=== PATIENT | female | born 1995 | race Caucasian/White ===

== ENCOUNTER 2021-03-10 15:02 | Emergency (ER) | payer OTHER, SELFPAY ==
--- NOTE | ~2021-03-10 | US_ITS ---
EXAMINATION: ULTRASOUND APPENDIX CLINICAL INFORMATION: Right lower quadrant pain COMPARISON: None TECHNIQUE: Sonographic evaluation of the right lower quadrant with graded compression. FINDINGS: The appendix is not visualized. No free fluid. No lymphadenopathy. US/US appendix IMPRESSION: Nonvisualization of the appendix. This does not exclude acute appendicitis.
--- NOTE | ~2021-03-10 | CT_ITS ---
EXAMINATION: CT ABDOMEN AND PELVIS WITH CONTRAST CLINICAL INFORMATION: Right lower quadrant abdominal pain. Evaluate for appendicitis. COMPARISON: None TECHNIQUE: Multidetector volumetric images were obtained from the superior aspect of the liver through the pubic symphysis following administration 85 mL of Omnipaque 350 intravenous contrast. Sagittal and coronal reformatted images were obtained on the technologist's workstation. Oral contrast: No This CT examination was performed using dose optimization techniques as appropriate, variously including the following: *Automated exposure control *Adjustment of mA and/or kV according to patient size (this includes techniques or standardized protocols for targeted exams where dose is matched to indication/reason for exam; i.e. extremities or head) *Use of iterative reconstruction technique DLP: 403 mGy-cm FINDINGS: LUNG BASES: The visualized lung bases are unremarkable. LIVER, GALLBLADDER, AND BILIARY TREE: The liver is normal in size, shape, and attenuation. No focal hepatic lesion or biliary ductal dilatation is present. The gallbladder is unremarkable with no evidence of radiopaque gallstones, gallbladder wall thickening, or obvious pericholecystic inflammatory changes. PANCREAS: Unremarkable. SPLEEN: Unremarkable. ADRENAL GLANDS: Unremarkable. KIDNEYS AND URETERS: The kidneys are normal in size, shape, and attenuation. There is a 1.5 cm simple cyst in the upper pole of the left kidney. No hydronephrosis, hydroureter, or calculi seen. No perinephric stranding. BLADDER: Underdistended. No focal abnormalities. No perivesical fat stranding. GASTROINTESTINAL TRACT: The stomach and the small bowel are nondilated. The appendix is unremarkable. No pericolic inflammatory changes or bowel obstruction. ABDOMINAL WALL: No significant hernia is appreciated. LYMPH NODES: There are a few enlarged mesenteric or retroperitoneal lymph nodes in the right lower quadrant, for example measuring up to 1 cm in maximum short axis on image 38 of series 3 of uncertain etiology. VASCULAR: Unremarkable. PELVIC VISCERA: The ovarian veins are dilated and there are engorged periuterine varicosities, which could be seen in the setting of pelvic congestion syndrome. No adnexal lesions. OSSEOUS STRUCTURES: No acute or aggressive osseous abnormalities. CT/CT abdomen pelvis w con IMPRESSION: Normal appendix. Engorged ovarian veins and periuterine vessels that could be related with pelvic congestion syndrome in the appropriate clinical setting. Prominent right lower quadrant mesenteric and retroperitoneal lymph nodes of uncertain etiology. This could be seen in the setting of mesenteric adenitis.
--- NOTE | ~2021-03-10 | US_ITS ---
EXAMINATION: ULTRASOUND PELVIC OVARIAN DOPPLER CLINICAL INFORMATION: Right lower quadrant pain. Last menstrual period today (03/10/2021). COMPARISON: None TECHNIQUE: Transabdominal and transvaginal images were obtained with grayscale, color Doppler and spectral Doppler analysis. FINDINGS: The uterus is anteverted and measures 7.4 x 3.9 x 4.2 cm. There are no focal uterine abnormalities. The endometrium measures 0.4 cm in thickness and appears within normal limits. The ovaries are normal in morphology with preserved flow on color Doppler and spectral Doppler. The right ovary measures 2.5 x 1.4 x 1.7 cm for a volume of 3 mL and the left ovary measures 2.4 x 1.3 x 1.4 cm for a volume of 20 mL. No evidence of free fluid. US/US pelvic ovarian doppler IMPRESSION: No acute sonographic abnormalities to explain the patient's symptoms. No evidence of ovarian torsion at the moment of this examination.
[2021-03-10 15:05] VITALS: BP 138/84; PULSE 79; RESP 19; TEMP 36.7; O2SAT 97; BMI 23.0
[2021-03-10 15:32] LABS: Appearance Urine HAZY; Color Urine YELLOW; Glucose Urine UA NEG (NEG); Leukocyte Esterase Urine NEG (NEG); Nitrite Urine NEG (NEG); Specific Gravity - Urine >= 1.030 (1.005-1.025); UACC Culture Trigger NO; Urine Blood 2+ (NEG); Urine Ketones >=80 MG/DL (NEG); Urine Protein TRACE MG/DL (NEG-TRACE)
[2021-03-10 15:34] LABS: UPreg QC Valid YES; Urine Pregnancy NEGATIVE (NEGATIVE)
[2021-03-10 15:39] LABS: Bacteria Urine TRACE /LPF; Mucus Urine 2+ /LPF; Squamous Epithelial Cell Urine 2+ /LPF; WBC Urine 0 /HPF (0-4)
[2021-03-10 15:43] LABS: Amphetamine Screen Urine Not Detected (Not Detect); Barbiturates, Urine Not Detected (Not Detect); Benzodiazepines Screen Urine Not Detected (Not Detect); Cannabinoid Screen Urine POSITIVE (Not Detect); Cocaine Screen Urine Not Detected (Not Detect); Fentanyl, urine Not Detected (Not Detect); Opiate Screen Urine Not Detected (Not Detect); Phencyclidine Screen Urine Not Detected (Not Detect)
[2021-03-10 16:00] VITALS: BP 137/87; PULSE 90; RESP 16; TEMP 37.4; O2SAT 97
--- NOTE | 2021-03-10 16:48 | ED.GENADULT ---
HPI - General Adult General Chief complaint: Abdominal Pain <BUCKY Blakely - Last Filed: 03/10/21 19:58> Stated complaint: dehydrated, right lower quad pain <BUCKY Blakely Last Filed: 03/10/21 19:58> Time Seen by Provider: 03/10/21 16:17 <BUCKY Blakely Last Filed: 03/10/21 19:58> Source: patient <BUCKY Blakely Last Filed: 03/10/21 19:58> Mode of arrival: ambulatory <BUCKY Blakely Last Filed: 03/10/21 19:58> Limitations: no limitations <BUCKY Blakely Last Filed: 03/10/21 19:58> History of Present Illness HPI narrative: 25-year-old female past medical history significant for fibromyalgia and vitamin D defficiency presents to the emergency department with multiple complaints (right lower quadrant abdominal pain, nausea, vomiting, palpitations, diaphoresis, muscle soreness) X 5 days. Patient states she was on maternity leave for 6 months, she returned to work on Saturday and started experiencing all these symptoms she states it started as abdominal cramping but has progressed to intermittent severe, right lower quadrant cramping/stabbing, free of radiation. She states the pain in 02/05. She reports associated nausea and vomiting, intermittently for the past five days, she states she still has an appetite but at time when she eats she throws up her food. She also mentions she feels her heart racing and at times she begins to sweat. She mentions shes under a lot of stress at home and at work. No previous abdominal surgeries. Denies drinking and drug use. Current daily smoker. Patient is on depo shot. Denies fevers, chills, chest pain, weakness, changes in urination, changes in bowel habits, recent sick contacts. Patient is extremely anxious throughout entire history, and speaking very rapidly. Patient currently on her mense. Denies post depression <BUCKY Blakely Last Filed: 03/10/21 19:58> Onset (ago): day(s) (5) <BUCKY Blakely Last Filed: 03/10/21 19:58> Location: abdomen (RLQ) <BUCKY Blakely - Last Filed: 03/10/21 19:58> Radiation: non-radiation <BUCKY Blakely - Last Filed: 03/10/21 19:58> Severity: severe <BUCKY Blakely - Last Filed: 03/10/21 19:58> Severity scale (1-10): >10 <BUCKY Blakely - Last Filed: 03/10/21 19:58> Quality: stabbing and other (cramping ) <BUCKY Blakely - Last Filed: 03/10/21 19:58> Pain Consistency: intermittent <BUCKY Blakely - Last Filed: 03/10/21 19:58> Relieving factors: none <BUCKY Blakely - Last Filed: 03/10/21 19:58> Exacerbating factors: none <BUCKY Blakely - Last Filed: 03/10/21 19:58> Associated symptoms: nausea/vomiting and other (muscle soreness) <BUCKY Blakely - Last Filed: 03/10/21 19:58> Treatments prior to arrival: none <BUCKY Blakely - Last Filed: 03/10/21 19:58> Related Data Home medications: Previous Rx's Medication Instructions Recorded naproxen 500 mg tablet 500 mg PO BID PRN #14 tab 03/10/21 ondansetron 4 mg disintegrating 4 mg PO BEDTIME PRN #7 tab 03/10/21 tablet <BUCKY Blakely - Last Filed: 03/10/21 19:58> Allergies/adverse reactions: Allergies Allergy/AdvReac Type Severity Reaction Status Date / Time amoxicillin [AMOXICILLIN] Allergy Intermediate THROAT Verified 03/10/21 15:04 SWELLING bee pollen [BEE STINGS] Allergy Unknown UNKNOWN Verified 03/10/21 15:04 morphine Allergy Unknown Unknown Verified 03/10/21 15:04 <BUCKY Blakely Last Filed: 03/10/21 19:58> Review of Systems Review of Systems: Constitutional : No Weight loss, No Fever, No Chills, No Fatigue, No Malaise ENT/Mouth : No sore throat, No Rhinorrhea Eyes: No Eye Pain, No Swelling, No Redness Cardiovascular : No Chest Pain, No SOB, No Dyspnea on Exertion, No Orthopnea, No Edema, + Palpitations Respiratory : No Cough, No Sputum, No Wheezing Gastrointestinal : + Nausea, + Vomiting, No Diarrhea, No Constipation, + abdominal Pain, No Hematochezia, No Melena Genitourinary : No Dysuria, No Urinary Frequency, No Hematuria, Musculoskeletal : No joint pain, + Myalgias, No Joint Swelling Skin : No Skin Lesions, No rash Neuro : No Weakness, No Numbness, No Dizziness, No Headache All other systems reviewed and are negative <BUCKY Blakely - Last Filed: 03/10/21 19:58> [facility] Past Medical History Attestation statement: The following information was validated with the patient. <BUCKY Blakely - Last Filed: 03/10/21 19:58> Source: old records reviewed and nursing notes reviewed <BUCKY Blakely - Last Filed: 03/10/21 19:58> Medical History: Medical History No home medical services <BUCKY Blakely - Last Filed: 03/10/21 19:58> Social History Social History: Social History Advance Directives: No Advance Directives Information Provided: No Patient : No <BUCKY Blakely - Last Filed: 03/10/21 19:58> Physical Exam Vital Signs: Vital Signs: Last Vital Signs Temp 99.5 F 03/10/21 18:56 Pulse 81 03/10/21 18:56 Resp 16 03/10/21 18:56 BP 133/85 03/10/21 18:56 Pulse Ox 99 03/10/21 18:56 Body Mass Index 23.0 <BUCKY Blakely - Last Filed: 03/10/21 19:58> Vital Signs: Last Vital Signs Temp 99.5 F 03/10/21 18:56 Pulse 81 03/10/21 18:56 Resp 16 03/10/21 18:56 BP 133/85 03/10/21 18:56 Pulse Ox 99 03/10/21 18:56 Body Mass Index 23.0 <BUCKY Callejas - Last Filed: 03/10/21 22:04> Appearance: Alert.? Oriented X3.? No acute distress.? Eyes: Pupils equal, round and reactive to light.? ENT: Pharynx normal.? Neck: Normal inspection.? Neck supple.? CVS: Normal heart rate and rhythm.? Pulses normal.? Respiratory: No respiratory distress.? Breath sounds normal.? Abdomen: Soft and nontender.? Skin: Skin warm and dry.? Normal skin color.? Normal skin turgor.? Extremities: No lower extremity edema.? No calf ttp. 5/5 strength to bilateral upper and lower exteremities. Back: No CVA tenderness b/l Neuro: Oriented X 3.? No motor deficit.? No sensory deficit. <BUCKY Blakely - Last Filed: 03/10/21 19:58> Course Course Course Narrative: Patient seen and examined - agree with assessment and plan. <BUCKY Callejas - Last Filed: 03/10/21 22:04> Reevaluation(s) Reevaluation #1: Labs show no acute infection, no anemia, no acute electrolyte abnormalities, urine clean, urine negative. US negative. No appendicitis noted. CT abdomen and pelvis shows mesenteric adenitis. Patient safe for DC home with PCP follow up and OBGYN follwo up. Strict return percautions have been discussed with the patient such as worsening pain, fevers, chills, nausea, vomiting, chest pain and SOB <BUCKY Blakely - Last Filed: 03/10/21 19:58> Time: 19:45 <BUCKY Blakely - Last Filed: 03/10/21 19:58> Reevaluation #2: Patient states she will follow up with both PCP and OBGYn. She expresses significant improvement after toradol. <BUCKY Blakely - Last Filed: 03/10/21 19:58> Time: 19:55 <BUCKY Blakely - Last Filed: 03/10/21 19:58> Medical Decision Making MDM Narrative Medical decision making narrative: [id number] 25 yo female 6 months post , past medical history significant for vitamin-D deficiency, fibromyalgia presents to the emergency department with 5 days multiple complaints including right lower quadrant severe cramping/stabbing abdominal pain, nausea, vomiting, muscle aches, diaphoresis and palpitations Patient states she is currently on her menses. She is on Depo-Provera for control. She denies alcohol and drugs. Patient daily smoker. She also denies depression. Upon physical examination patient appears extremely anxious, she is speaking very rapidly. S1-S2 appreciated free of murmurs. Lungs clear to auscultation bilaterally. Abdomen is soft nontender nondistended. 5/5 strength upper and lower extremities. Pupils equal round and reactive to light bilaterally. Head normocephalic, atraumatic. No focal neuro deficits. No CVA tenderness. Plan at this time is to obtain an ultrasound of the right lower quadrant to rule out ovarian torsion ovarian cyst, and appendicitis. Basic labs will be ordered to rule out infection. A CK will also be obtained. Due to patient's palpitations which are likely very to anxiety an EKG will be obtained. I do not suspect that this is ACS, no need for troponin at this time. <BUCKY Blakely - Last Filed: 03/10/21 19:58> Lab Data Result diagrams: : 03/10/21 16:59 03/10/21 16:59 <BUCKY Blakely - Last Filed: 03/10/21 19:58> Labs: Lab Results 03/10/21 03/10/21 03/10/21 Range/Units 15:19 15:19 15:19 WBC (4.8-10.8) X10*3/uL RBC (4.20-5.50) X10*6/uL Hgb (12.0-16.0) g/dl Hct (37.0-47.0) % MCV (80.0-98.0) fL MCH (27.0-33.0) pg MCHC (31.0-35.0) g/dl RDW (11.0-16.0) % Plt Count (160-400) X10*3/uL MPV (9.4-12.3) fL Immature Gran % (Auto) (0.0-0.4) % Neut % (Auto) (45-73) % Lymph % (Auto) (20-40) % [place] % (Auto) (2-11) % Eos % (Auto) (0-4) % Baso % (Auto) (0-2) % Lymph # (Auto) (1.2-4.9) X10*3/uL [place] # (Auto) (0.1-1.2) X10*3/uL Eos # (Auto) (0.0-0.4) X10*3/uL Baso # (Auto) (0.0-0.2) X10*3/uL Abs Immat Gran (auto) (0.00-0.03) X10*3/uL Absolute Neuts (auto) (2.0-8.3) x10*3/uL Absolute Nucleated RBC (0.0-0.012) X10*3/uL Nucleated RBC % (auto) (0.0-0.2) /100WBC Sodium (135-145) mmol/L Potassium (3.3-5.1) mmol/L Chloride (96-108) mmol/L Carbon Dioxide (22-29) mmol/L Anion Gap (12-20) BUN (9-16) mg/dL Creatinine (0.5-1.4) mg/dL Estim Creat Clear Calc Estimated GFR Random Glucose (60-115) mg/dL Calcium (8.4-10.2) mg/dL Magnesium (1.6-2.6) mg/dL Total Bilirubin (0.0-1.0) mg/dL AST (5-31) U/L ALT (0-31) U/L Alkaline Phosphatase (39-117) U/L Total Creatine Kinase (26-140) U/L Total Protein (6.5-8.0) g/dL Albumin (3.5-5.0) g/dL Lipase (8-78) U/L Urine Color YELLOW Urine Appearance HAZY Urine pH 6.0 (5.0-8.0) Ur Specific [place] >= 1.030 H (1.005-1.025) Urine Protein TRACE (NEG-TRACE) MG/DL Urine Glucose (UA) NEG (NEG) MG/DL Urine Ketones >=80 (NEG) MG/DL Urine Blood 2+ H (NEG) Urine Nitrite NEG (NEG) Ur Leukocyte Esterase NEG (NEG) Urine RBC 1-4 (0) /HPF Urine WBC 0 (0-4) /HPF Ur Squamous Epith Cells 2+ /LPF Urine Bacteria TRACE /LPF Urine Mucus 2+ /LPF Urine Test NEGATIVE (NEGATIVE) Urine Opiates Screen Not Detected (Not Detect) Urine Fentanyl Screen Not Detected (Not Detect) Ur Barbiturates Screen Not Detected (Not Detect) Ur Phencyclidine Scrn Not Detected (Not Detect) Ur Amphetamines Screen Not Detected (Not Detect) U Benzodiazepines Scrn Not Detected (Not Detect) Urine Cocaine Screen Not Detected (Not Detect) U Marijuana (THC) Screen POSITIVE H (Not Detect) 03/10/21 03/10/21 Range/Units 16:59 16:59 WBC 8.7 (4.8-10.8) X10*3/uL RBC 4.17 L (4.20-5.50) X10*6/uL Hgb 12.4 (12.0-16.0) g/dl Hct 36.9 L (37.0-47.0) % MCV 88.5 (80.0-98.0) fL MCH 29.7 (27.0-33.0) pg MCHC 33.6 (31.0-35.0) g/dl RDW 13.2 (11.0-16.0) % Plt Count 278 (160-400) X10*3/uL MPV 9.7 (9.4-12.3) fL Immature Gran % (Auto) 0.3 (0.0-0.4) % Neut % (Auto) 54.7 (45-73) % Lymph % (Auto) 38.5 (20-40) % [place] % (Auto) 6.0 (2-11) % Eos % (Auto) 0.3 (0-4) % Baso % (Auto) 0.2 (0-2) % Lymph # (Auto) 3.3 (1.2-4.9) X10*3/uL [place] # (Auto) 0.5 (0.1-1.2) X10*3/uL Eos # (Auto) 0.0 (0.0-0.4) X10*3/uL Baso # (Auto) 0.0 (0.0-0.2) X10*3/uL Abs Immat Gran (auto) 0.03 (0.00-0.03) X10*3/uL Absolute Neuts (auto) 4.7 (2.0-8.3) x10*3/uL Absolute Nucleated RBC 0.000 (0.0-0.012) X10*3/uL Nucleated RBC % (auto) 0.0 (0.0-0.2) /100WBC Sodium 140 (135-145) mmol/L Potassium 4.2 (3.3-5.1) mmol/L Chloride 107 (96-108) mmol/L Carbon Dioxide 19 L (22-29) mmol/L Anion Gap 18 (12-20) BUN 8 L (9-16) mg/dL Creatinine 0.81 (0.5-1.4) mg/dL Estim Creat Clear Calc 89.3 Estimated GFR > 60 Random Glucose 77 (60-115) mg/dL Calcium 9.8 (8.4-10.2) mg/dL Magnesium 2.0 (1.6-2.6) mg/dL Total Bilirubin 0.5 (0.0-1.0) mg/dL AST 17 (5-31) U/L ALT 13 (0-31) U/L Alkaline Phosphatase 68 (39-117) U/L Total Creatine Kinase 140 (26-140) U/L Total Protein 7.7 (6.5-8.0) g/dL Albumin 5.0 (3.5-5.0) g/dL Lipase 16 (8-78) U/L Urine Color Urine Appearance Urine pH (5.0-8.0) Ur Specific [place] (1.005-1.025) Urine Protein (NEG-TRACE) MG/DL Urine Glucose (UA) (NEG) MG/DL Urine Ketones (NEG) MG/DL Urine Blood (NEG) Urine Nitrite (NEG) Ur Leukocyte Esterase (NEG) Urine RBC (0) /HPF Urine WBC (0-4) /HPF Ur Squamous Epith Cells /LPF Urine Bacteria /LPF Urine Mucus /LPF Urine Test (NEGATIVE) Urine Opiates Screen (Not Detect) Urine Fentanyl Screen (Not Detect) Ur Barbiturates Screen (Not Detect) Ur Phencyclidine Scrn (Not Detect) Ur Amphetamines Screen (Not Detect) U Benzodiazepines Scrn (Not Detect) Urine Cocaine Screen (Not Detect) U Marijuana (THC) Screen (Not Detect) <BUCKY Blakely - Last Filed: 03/10/21 19:58> Lab Results 03/10/21 03/10/21 03/10/21 Range/Units 15:19 15:19 15:19 WBC (4.8-10.8) X10*3/uL RBC (4.20-5.50) X10*6/uL Hgb (12.0-16.0) g/dl Hct (37.0-47.0) % MCV (80.0-98.0) fL MCH (27.0-33.0) pg MCHC (31.0-35.0) g/dl RDW (11.0-16.0) % Plt Count (160-400) X10*3/uL MPV (9.4-12.3) fL Immature Gran % (Auto) (0.0-0.4) % Neut % (Auto) (45-73) % Lymph % (Auto) (20-40) % [place] % (Auto) (2-11) % Eos % (Auto) (0-4) % Baso % (Auto) (0-2) % Lymph # (Auto) (1.2-4.9) X10*3/uL [place] # (Auto) (0.1-1.2) X10*3/uL Eos # (Auto) (0.0-0.4) X10*3/uL Baso # (Auto) (0.0-0.2) X10*3/uL Abs Immat Gran (auto) (0.00-0.03) X10*3/uL Absolute Neuts (auto) (2.0-8.3) x10*3/uL Absolute Nucleated RBC (0.0-0.012) X10*3/uL Nucleated RBC % (auto) (0.0-0.2) /100WBC Sodium (135-145) mmol/L Potassium (3.3-5.1) mmol/L Chloride (96-108) mmol/L Carbon Dioxide (22-29) mmol/L Anion Gap (12-20) BUN (9-16) mg/dL Creatinine (0.5-1.4) mg/dL Estim Creat Clear Calc Estimated GFR Random Glucose (60-115) mg/dL Calcium (8.4-10.2) mg/dL Magnesium (1.6-2.6) mg/dL Total Bilirubin (0.0-1.0) mg/dL AST (5-31) U/L ALT (0-31) U/L Alkaline Phosphatase (39-117) U/L Total Creatine Kinase (26-140) U/L Total Protein (6.5-8.0) g/dL Albumin (3.5-5.0) g/dL Lipase (8-78) U/L Urine Color YELLOW Urine Appearance HAZY Urine pH 6.0 (5.0-8.0) Ur Specific [place] >= 1.030 H (1.005-1.025) Urine Protein TRACE (NEG-TRACE) MG/DL Urine Glucose (UA) NEG (NEG) MG/DL Urine Ketones >=80 (NEG) MG/DL Urine Blood 2+ H (NEG) Urine Nitrite NEG (NEG) Ur Leukocyte Esterase NEG (NEG) Urine RBC 1-4 (0) /HPF Urine WBC 0 (0-4) /HPF Ur Squamous Epith Cells 2+ /LPF Urine Bacteria TRACE /LPF Urine Mucus 2+ /LPF Urine Test NEGATIVE (NEGATIVE) Urine Opiates Screen Not Detected (Not Detect) Urine Fentanyl Screen Not Detected (Not Detect) Ur Barbiturates Screen Not Detected (Not Detect) Ur Phencyclidine Scrn Not Detected (Not Detect) Ur Amphetamines Screen Not Detected (Not Detect) U Benzodiazepines Scrn Not Detected (Not Detect) Urine Cocaine Screen Not Detected (Not Detect) U Marijuana (THC) Screen POSITIVE H (Not Detect) 03/10/21 03/10/21 Range/Units 16:59 16:59 WBC 8.7 (4.8-10.8) X10*3/uL RBC 4.17 L (4.20-5.50) X10*6/uL Hgb 12.4 (12.0-16.0) g/dl Hct 36.9 L (37.0-47.0) % MCV 88.5 (80.0-98.0) fL MCH 29.7 (27.0-33.0) pg MCHC 33.6 (31.0-35.0) g/dl RDW 13.2 (11.0-16.0) % Plt Count 278 (160-400) X10*3/uL MPV 9.7 (9.4-12.3) fL Immature Gran % (Auto) 0.3 (0.0-0.4) % Neut % (Auto) 54.7 (45-73) % Lymph % (Auto) 38.5 (20-40) % [place] % (Auto) 6.0 (2-11) % Eos % (Auto) 0.3 (0-4) % Baso % (Auto) 0.2 (0-2) % Lymph # (Auto) 3.3 (1.2-4.9) X10*3/uL [place] # (Auto) 0.5 (0.1-1.2) X10*3/uL Eos # (Auto) 0.0 (0.0-0.4) X10*3/uL Baso # (Auto) 0.0 (0.0-0.2) X10*3/uL Abs Immat Gran (auto) 0.03 (0.00-0.03) X10*3/uL Absolute Neuts (auto) 4.7 (2.0-8.3) x10*3/uL Absolute Nucleated RBC 0.000 (0.0-0.012) X10*3/uL Nucleated RBC % (auto) 0.0 (0.0-0.2) /100WBC Sodium 140 (135-145) mmol/L Potassium 4.2 (3.3-5.1) mmol/L Chloride 107 (96-108) mmol/L Carbon Dioxide 19 L (22-29) mmol/L Anion Gap 18 (12-20) BUN 8 L (9-16) mg/dL Creatinine 0.81 (0.5-1.4) mg/dL Estim Creat Clear Calc 89.3 Estimated GFR > 60 Random Glucose 77 (60-115) mg/dL Calcium 9.8 (8.4-10.2) mg/dL Magnesium 2.0 (1.6-2.6) mg/dL Total Bilirubin 0.5 (0.0-1.0) mg/dL AST 17 (5-31) U/L ALT 13 (0-31) U/L Alkaline Phosphatase 68 (39-117) U/L Total Creatine Kinase 140 (26-140) U/L Total Protein 7.7 (6.5-8.0) g/dL Albumin 5.0 (3.5-5.0) g/dL Lipase 16 (8-78) U/L Urine Color Urine Appearance Urine pH (5.0-8.0) Ur Specific [place] (1.005-1.025) Urine Protein (NEG-TRACE) MG/DL Urine Glucose (UA) (NEG) MG/DL Urine Ketones (NEG) MG/DL Urine Blood (NEG) Urine Nitrite (NEG) Ur Leukocyte Esterase (NEG) Urine RBC (0) /HPF Urine WBC (0-4) /HPF Ur Squamous Epith Cells /LPF Urine Bacteria /LPF Urine Mucus /LPF Urine Test (NEGATIVE) Urine Opiates Screen (Not Detect) Urine Fentanyl Screen (Not Detect) Ur Barbiturates Screen (Not Detect) Ur Phencyclidine Scrn (Not Detect) Ur Amphetamines Screen (Not Detect) U Benzodiazepines Scrn (Not Detect) Urine Cocaine Screen (Not Detect) U Marijuana (THC) Screen (Not Detect) <BUCKY Callejas - Last Filed: 03/10/21 22:04> Imaging Data CT scan - abdomen: Attestation: I personally reviewed and interpreted this imaging study as follows: <BUCKY Blakely - Last Filed: 03/10/21 19:58> Radiologist's impression: CT/CT abdomen pelvis w con IMPRESSION: ? Normal appendix. ? Engorged ovarian veins and periuterine vessels that could be related with pelvic congestion syndrome in the appropriate clinical setting. ? Prominent right lower quadrant mesenteric and retroperitoneal lymph nodes of uncertain etiology. This could be seen in the setting of mesenteric adenitis. <BUCKY Blakely Last Filed: 03/10/21 19:58> Appendix US: Attestation: I personally reviewed and interpreted this imaging study as follows: <BUCKY Blakely Last Filed: 03/10/21 19:58> Radiologist's impression: US/US appendix IMPRESSION: Nonvisualization of the appendix. This does not exclude acute appendicitis.? <BUCKY Blakely - Last Filed: 03/10/21 19:58> US pelvic ovarian doppler: Attestation: I personally reviewed and interpreted this imaging study as follows: <BUCKY Blakely - Last Filed: 03/10/21 19:58> Radiologist's impression: US/US pelvic ovarian doppler IMPRESSION: No acute sonographic abnormalities to explain the patient's symptoms. No evidence of ovarian torsion at the moment of this examination.? <BUCKY Blakely - Last Filed: 03/10/21 19:58> ECG Data Attestation: I personally reviewed and interpreted this ECG as follows: <BUCKY Blakely - Last Filed: 03/10/21 19:58> Prior ECG tracings: not available for review <BUCKY Blakely - Last Filed: 03/10/21 19:58> Interpretation: Ventricular rate normal, QRS normal, MN normal, QT/QTC normal. No JAMSHID or depressions no acute ischemia. EKG NSR. No previous EKGS to compare. <BUCKY Blakely - Last Filed: 03/10/21 19:58> Critical Care Time Critical Care Time Critical Care Time: No <BUCKY Blakely - Last Filed: 03/10/21 19:58> Discharge Plan Discharge Clinical Impression: Mesenteric adenitis, Abdominal pain, Nausea & vomiting <BUCKY Blakely - Last Filed: 03/10/21 19:58> Patient Disposition: Home, Self-Care <BUCKY Blakely - Last Filed: 03/10/21 19:58> Instructions: Lymphadenopathy (ED), Acute Nausea and Vomiting (ED), Mesenteric Adenitis (ED) <BUCKY Blakely - Last Filed: 03/10/21 19:58> Additional Instructions: Follow-up with your primary care provider this week and OBGYN Return to the emergency department with new or worsening symptoms. Such as worsening pain, fevers, chills, nausea, vomiting, chest pain and shortness of breath. You can apply head to the area. In case of emergency call 911 <BUCKY Blakely - Last Filed: 03/10/21 19:58> Prescriptions: New ondansetron 4 mg tablet,disintegrating 4 mg PO BEDTIME PRN (Reason: nausea and vomiting) Qty: 7 RF: 0 naproxen 500 mg tablet 500 mg PO BID PRN (Reason: pain) Qty: 14 RF: 0 <BUCKY Blakely - Last Filed: 03/10/21 19:58> Referrals: Physician,Unknown J [Primary Care Provider] - 2 days <BUCKY Blakely Last Filed: 03/10/21 19:58> Stand Alone Forms: Work/School Release <BUCKY Blakely - Last Filed: 03/10/21 19:58> Interventions: ED Discharge Assessment Last Done: 03/10/21 20:01 <BUCKY Blakely - Last Filed: 03/10/21 19:58> Discharge Date/Time: 03/10/21 20:01 <BUCKY Blakely - Last Filed: 03/10/21 19:58>
--- NOTE | 2021-03-10 16:50 | ECG_ITS ---
Test Reason : ABDOMIAL PAIN Blood Pressure : / mmHG Vent. Rate : 066 BPM Atrial Rate : 066 BPM P-R Int : 132 ms QRS Dur : 078 ms QT Int : 396 ms P-R-T Axes : 050 079 037 degrees QTc Int : 415 ms Normal sinus rhythm Normal ECG No previous ECGs available Referred By: Humberto Solo Electronically Signed By:STEVE ROQUE MD
[2021-03-10 17:04] LABS: MANUAL DIFF FLAG NO
[2021-03-10 17:27] LABS: Basophils Percent Auto 0.2 % (0-2); Eosinophils Percent Auto 0.3 % (0-4); Hematocrit 36.9 % (37.0-47.0); Hemoglobin 12.4 g/dl (12.0-16.0); Imm Gran Abs Auto 0.03 X10*3/uL (0.00-0.03); Imm Gran Pct Auto 0.3 % (0.0-0.4); Lymphocytes Absolute Auto 3.3 X10*3/uL (1.2-4.9); Lymphocytes Percent Auto 38.5 % (20-40); Mean Corpuscular HGB Conc 33.6 g/dl (31.0-35.0); Mean Corpuscular Hemoglobin 29.7 pg (27.0-33.0); Mean Corpuscular Volume 88.5 fL (80.0-98.0); Mean Platelet Volume 9.7 fL (9.4-12.3); Monocytes Absolute Auto 0.5 X10*3/uL (0.1-1.2); Neutrophils Absolute Auto 4.7 x10*3/uL (2.0-8.3); Neutrophils Percent Auto 54.7 % (45-73); Platelet Count 278 X10*3/uL (160-400); Red Blood Count 4.17 X10*6/uL (4.20-5.50); Red Cell Distribution Width 13.2 % (11.0-16.0); White Blood Count 8.7 X10*3/uL (4.8-10.8)
[2021-03-10 17:37] LABS: Alanine Aminotransferase 13 U/L (0-31); Alkaline Phosphatase 68 U/L (39-117); Anion Gap 18 (12-20); Aspartate Amino Transferase 17 U/L (5-31); Bilirubin Total 0.5 mg/dL (0.0-1.0); Blood Urea Nitrogen 8 mg/dL (9-16); Calcium 9.8 mg/dL (8.4-10.2); Carbon Dioxide 19 mmol/L (22-29); Chloride 107 mmol/L (96-108); Creatinine Clr Calc Pharmacy 89.3; Estimated Glomerular Filt Rate > 60; Glucose Random 77 mg/dL (60-115); Lipase 16 U/L (8-78); Potassium 4.2 mmol/L (3.3-5.1); Sodium 140 mmol/L (135-145); Total Protein 7.7 g/dL (6.5-8.0)
[2021-03-10] MEDS: Ketorolac Tromethamine 15 MG/ML VIAL 30 MG IM (17:45)
[2021-03-10 18:56] VITALS: BP 133/85; PULSE 81; RESP 16; TEMP 37.5; O2SAT 99
== END 2021-03-10 20:01 | disposition home or self-care (01) ==
PROVIDERS: Physician Assistant; Emergency Provider Internal Medicine
DX: R10.9 Unspecified abdominal pain (principal); I88.0 Nonspecific mesenteric lymphadenitis; R11.2 Nausea with vomiting, unspecified; F17.200 Nicotine dependence, unspecified, uncomplicated
CPT/HCPCS: 36415; 74177; 76705; 80053; 80307; 81001; 81025; 82550; 83690; 83735; 85025; 93005; 93975; 96372; 99284; J1885